=== PATIENT | female | born 1965 | race Caucasian/White ===

== ENCOUNTER 2016-08-05 21:16 | Emergency (ER) | payer BC, OTHER ==
[2016-08-05 21:34] VITALS: BP 160/77
[2016-08-05] MEDS ORDERED: Clindamycin CAP* 150 MG PO ONE (22:06)
[2016-08-05] MEDS ORDERED: HYDROcodone/ACETAMIN 5-325 MG* 1 TAB PO ONE (22:06)
[2016-08-05] MEDS ORDERED: Ondansetron ODT TAB* 4 MG PO ONE (22:06)
--- NOTE | 2016-08-05 22:14 | UC ---
Dental HPI - HPI Summary HPI Summary: R upper tooth pain & swelling starting yesterday morning. Has lots of dental problems, no current dentist. - History of Current Complaint Chief Complaint: UCDentalProblem Stated Complaint: TOOTH ACHE Time Seen by Provider: 08/05/16 22:01 Hx Obtained From: Patient ?: No Onset/Duration: Gradual Onset, Lasting Days Severity: Moderate Aggravating: Chewing Alleviating: Nothing Related History: Previous Dental Care on Same Tooth, Swelling - Allergies/Home Medications Allergies/Adverse Reactions: Allergies Allergy/AdvReac Type Severity Reaction Status Date / Time Penicillins Allergy Anaphylatic Verified 08/05/16 21:28 Shock Home Medications: Home Medications Acetaminophen [Tylenol] 650 mg 08/05/16 [History] Ibuprofen [Advil] 800 mg 08/05/16 [History] Thyroid Supplement 08/05/16 [History] PMH/Surg Hx/FS Hx/Imm Hx Previously Healthy: Yes - Surgical History Surgical History: None - Family History Known Family History: Positive: Hypertension - Social History Alcohol Use: Occasionally Alcohol Amount: 1-2 glasses Substance Use Type: None Smoking Status (MU): Heavy Every Day Tobacco Smoker Review of Systems Constitutional: Negative Skin: Negative Eyes: Negative ENT: Dental Pain Respiratory: Negative Cardiovascular: Negative Gastrointestinal: Negative Genitourinary: Negative Motor: Negative Neurovascular: Negative Musculoskeletal: Negative Neurological: Negative Psychological: Negative All Other Systems Reviewed And Are Negative: Yes Physical Exam Triage Information Reviewed: Yes Appearance: Pain Distress - mod, Obese Vital Signs: Initial Vital Signs Temp 99.4 F 08/05/16 21:29 Pulse 84 08/05/16 21:29 Resp 18 08/05/16 21:29 BP 160/77 08/05/16 21:29 Pulse Ox 100 08/05/16 21:29 Vital Signs Reviewed: Yes Eye Exam: Normal Eyes: Positive: Conjunctiva Clear ENT Exam: Normal ENT: Positive: Normal ENT inspection, Hearing grossly normal, Pharynx normal, TMs normal Dental: Positive: Gross Decay/Caries @, Abscess @ - #6 Neck exam: Normal Neck: Positive: Supple, Nontender, No Lymphadenopathy Respiratory Exam: Normal Respiratory: Positive: Chest non-tender, Lungs clear, Normal breath sounds, No respiratory distress, No accessory muscle use Cardiovascular Exam: Normal Cardiovascular: Positive: RRR, No Murmur Musculoskeletal Exam: Normal Neurological Exam: Normal Neurological: Positive: Alert Psychological Exam: Normal Skin Exam: Normal Dental Complaint Course/Dx - Differential Dx/Diagnosis Provider Diagnoses: R upper tooth abscess. elevated blood pressure due to pain Discharge - Discharge Plan Condition: Stable Disposition: HOME Prescriptions: Clindamycin Cap(NF) [Cleocin 300 mg Cap(NF)] 300 mg PO TID #20 cap Patient Education Materials: Dental Abscess (ED) Referrals: Estee Samuel MD [Primary Care Provider] - Additional Instructions: Please follow up with a dentist as soon as possible.
== END 2016-08-05 22:17 | disposition home or self-care (01) ==
LOC: UCEAST 21:16
DX: K04.7 Periapical abscess without sinus (principal); F17.210 Nicotine dependence, cigarettes, uncomplicated; R03.0 Elevated blood-pressure reading, without diagnosis of hypertension; Z88.0 Allergy status to penicillin
CPT/HCPCS: 99203; A9270-GY; G0463

== ENCOUNTER 2017-02-15 10:44 | Emergency (ER) | payer SELFPAY ==
[2017-02-15 11:14] VITALS: BP 144/70
[2017-02-15] MEDS ORDERED: Tetan/Diph/Pertus SYR(Tdap)* 0.5 ML SYR(BOOSTRIX) use SYR IM ONE (11:33)
[2017-02-15] MEDS ORDERED: Silver Sulfadiazine 1%* 20 GM TOPICAL ONE ×2 (11:34→11:54)
--- NOTE | 2017-02-15 11:47 | UC ---
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 TWO BLISTERS ON RIGHT ARM. ONE BLISTER ON SUPERIOR ANTERIOR CHEST. - History of Current Complaint Chief Complaint: UCBurn Stated Complaint: REESE ON ARM Time Seen by Provider: 02/15/17 11:24 Hx Obtained From: Patient Occurred: Days Ago Length of Exposure: Seconds Onset Severity: Moderate Current Severity: Mild Location: Trunk, RUE Character: Direct Thermal Contact Aggravating Factor(s): Nothing Alleviating Factor(s): Nothing Occupational Injury: Yes - Allergy/Home Medications Allergies/Adverse Reactions: Allergies Allergy/AdvReac Type Severity Reaction Status Date / Time Penicillins Allergy Anaphylatic Verified 02/15/17 11:06 Shock PMH/Surg Hx/FS Hx/Imm Hx Previously Healthy: Yes - Surgical History Surgical History: None Surgery Procedure, Year, and Place: hysterectomy - Family History Known Family History: Positive: Hypertension - Social History Occupation: Employed Full-time Lives: With Family Alcohol Use: Occasionally Alcohol Amount: 1-2 glasses Substance Use Type: None Smoking Status (MU): Heavy Every Day Tobacco Smoker Amount Used/How Often: 1/2 PPD Cessation Counseling: Patient Advised to Stop Review of Systems Constitutional: Negative Skin: Rash - RIGHT FOREARM 3CM X1CM & 2CM X 1CM BLISTERS. SUPERIOR ANTERIOR CHEST. Eyes: Negative ENT: Negative Respiratory: Negative Cardiovascular: Negative Gastrointestinal: Negative Genitourinary: Negative Motor: Negative Neurovascular: Negative Musculoskeletal: Negative Neurological: Negative Psychological: Negative Is Patient Immunocompromised?: No All Other Systems Reviewed And Are Negative: Yes Physical Exam Triage Information Reviewed: Yes Appearance: Well-Appearing, No Pain Distress, Well-Nourished, Obese Vital Signs: Initial Vital Signs Temp 98 F 02/15/17 11:07 Pulse 76 02/15/17 11:07 Resp 16 02/15/17 11:07 BP 144/70 02/15/17 11:07 Pulse Ox 100 02/15/17 11:07 Vital Signs Reviewed: Yes Eye Exam: Normal ENT Exam: Normal ENT: Positive: Normal ENT inspection Dental Exam: Normal Neck exam: Normal Neck: Positive: Supple, Nontender, No Lymphadenopathy Respiratory Exam: Normal Respiratory: Positive: Chest non-tender, Lungs clear, Normal breath sounds, No respiratory distress, No accessory muscle use Cardiovascular Exam: Normal Cardiovascular: Positive: RRR, No Murmur, Pulses Normal Abdominal Exam: Normal Musculoskeletal Exam: Normal Musculoskeletal: Positive: Strength Intact, ROM Intact Neurological Exam: Normal Psychological Exam: Normal Skin: Positive: Other - RIGHT FOREARM 3CM X1CM & 2CM X 1CM BLISTERS. SUPERIOR ANTERIOR CHEST. Burn Calculation - Trunk / Ant. 18% Trunk / Ant. % 2nd De - Right Arm 9% Right Arm 2nd De - Total 2nd Deg Total: 2 Total % BSA: 2 - [employer] Formula for Fluid Resuscitation Weight: 124.738 kg Total % BSA 2nd & 3rd Degree: 2 24 -Hour Fluid Replacement: 997.9 Course/Dx Burn - Differential Dx - Burn Differential Diagnoses: Direct Contact Thermal Burn - Diagnoses Clinic Provider Diagnoses: SECOND DEGREE REESE 2X RIGHT FOREARM; 1X SUPERIOR ANTERIOR CHEST Discharge - Discharge Plan Condition: Stable Disposition: HOME Patient Education Materials: Second Degree Burn (ED) Referrals: Estee Samuel MD [Primary Care Provider] -
== END 2017-02-15 12:23 | disposition home or self-care (01) ==
LOC: UCEAST 10:44
DX: T22.211A Burn of second degree of right forearm, initial encounter (principal); T21.21XA Burn of second degree of chest wall, initial encounter; X19.XXXA Contact with other heat and hot substances, initial encounter; Y93.9 Activity, unspecified; Y92.9 Unspecified place or not applicable; Y99.9 Unspecified external cause status; F17.210 Nicotine dependence, cigarettes, uncomplicated; Z88.0 Allergy status to penicillin
CPT/HCPCS: 90715; 99213; A9270-GY; G0463

== ENCOUNTER 2017-10-08 07:05 | Emergency (ER) | payer SELFPAY ==
[2017-10-08] MEDS ORDERED: predniSONE TAB* 20 MG PO ONE (08:01)
[2017-10-08] MEDS ORDERED: Ipratropium 0.5MG/2.5ML NEB* 0.5 MG/2.5 ML NEB.SOLN INH ONE (08:02)
[2017-10-08] MEDS ORDERED: Albuterol 2.5 MG/3 ML NEB.SOL* (0.083%) INH ONE (08:02)
--- NOTE | 2017-10-08 08:08 | UC ---
Shortness of Breath HPI - HPI Summary HPI Summary: Patient presents with 2 days of cough, congestion and drainage. Yesterday started feeling short of breath and wheezy. Symptoms have been getting worse. Denies any asthma or diagnosis of COPD but does smoke half a pack per day. Has been smoking for over 20 years. Has subjective fever and chills. - History of Current Complaint Chief Complaint: UCRespiratory Stated Complaint: SHORT OF BREATH Time Seen by Provider: 10/08/17 07:43 Hx Obtained From: Patient Onset/Duration: Gradual Onset, Lasting Days, Still Present Timing: Constant Current Severity: Moderate Dyspnea At: Rest Aggrevating Factors: Movement Alleviating Factors: Nothing Associated Signs & Symptoms: Positive: Cough (Nonproductive), Wheezing, Fever, Chills - Allergy/Home Medications Allergies/Adverse Reactions: Allergies Allergy/AdvReac Type Severity Reaction Status Date / Time Penicillins Allergy Anaphylatic Verified 10/08/17 07:22 Shock Home Medications: Home Medications Adrenal Supplement 1 tab 10/08/17 [History] D-Methorphan/PE/Acetaminophen [Cold Multi-Symptom Caplet] 1 tab PO 10/08/17 [ History] Fluticasone NASAL SPRAY 50MCG* [Flonase NASAL SPRAY 50MCG*] 2 spray BOTH NARES DAILY 10/08/17 [History Confirmed 10/08/17] Pseudoephedrine HCl [Sudafed 12 Hour] 120 mg PO 10/08/17 [History] guaiFENesin [Mucinex] 600 mg PO 10/08/17 [History] PMH/Surg Hx/FS Hx/Imm Hx Previously Healthy: Yes - Surgical History Surgical History: Yes Surgery Procedure, Year, and Place: hysterectomy - Family History Known Family History: Positive: Hypertension - Social History Alcohol Use: Rare Alcohol Amount: 1-2 glasses Substance Use Type: None Smoking Status (MU): Light Every Day Tobacco Smoker Type: Cigarettes Amount Used/How Often: 1/2 PPD Review of Systems Constitutional: Fever, Chills, Fatigue ENT: Nasal Discharge Respiratory: Shortness Of Breath, Cough, Other - WHEEZE Cardiovascular: Negative Gastrointestinal: Negative All Other Systems Reviewed And Are Negative: Yes Physical Exam Triage Information Reviewed: Yes Appearance: No Pain Distress, Well-Nourished, Ill-Appearing - MILD Vital Signs: Initial Vital Signs Temp 97.5 F 10/08/17 07:16 Pulse 83 10/08/17 07:16 Resp 18 10/08/17 07:16 BP 185/94 10/08/17 07:16 Pulse Ox 95 10/08/17 07:16 Vital Signs Reviewed: Yes Eyes: Positive: Conjunctiva Clear ENT: Positive: Hearing grossly normal, Pharynx normal, TMs normal Neck: Positive: Supple, Nontender, No Lymphadenopathy Respiratory: Positive: No respiratory distress, No accessory muscle use, Decreased breath sounds, Wheezing - DIFFUSELY Cardiovascular Exam: Normal Abdomen Description: Positive: Soft Musculoskeletal: Positive: No Edema Neurological: Positive: Alert Psychological: Positive: Age Appropriate Behavior Skin: Negative: rashes Diagnostics - Radiology CXR Xray Interpretation: Positive (See Comments) - Mild LEFT basilar subsegmental atelectasis. Elevated lung volumes suggest probable chronic obstructive pulmonary disease. Radiology Interpretation Completed By: Radiologist Re-Evaluation - Re-Evaluation First Eval Re-Evaluation Time: 09:30 - FEELS BETTER AFTER DUONEB AND 60MG PREDNISONE. LUNGS SOUND BETTER. MOVING MORE AIR AND LESS WHEEZE Change: Improved Shortness of Breath Dx - Differential Dx/Diagnosis Provider Diagnoses: COPD EXACERBATION Discharge - Sign-Out/Discharge Documenting (check all that apply): Discharge/Admit/Transfer - Discharge Plan Condition: Stable Disposition: HOME Prescriptions: Albuterol 2.5MG/3ML (0.083%)* [Ventolin 2.5 MG/3 ML NEB.BHANU*] 2.5 mg INH Q4H PRN #1 box PRN Reason: Wheezing Albuterol HFA INHALER* [Ventolin HFA Inhaler*] 2 puff INH Q4H PRN #1 mdi PRN Reason: Shortness Of Breath Azithromycin 500 mg PO DAILY #5 tab Nebulizer [Mini Plus Nebulizer] 1 each MC Q4H PRN #1 each PRN Reason: Shortness Of Breath predniSONE TAB* [Deltasone TAB*] 50 mg PO DAILY #5 tab Patient Education Materials: COPD (Chronic Obstructive Pulmonary Disease) (ED) Forms: *Work Release Referrals: Estee Samuel MD [Primary Care Provider] - Additional Instructions: Chest x-ray consistent with COPD. Take your prednisone daily for the next 4 days and use the albuterol every 4 hours as needed. If you're not improving with that treatment over the next few days start the antibiotic. If you start the antibiotic take it for the full 5 days. Follow-up with Dr. Samuel if you' re not improving as expected and to discuss smoking cessation. - Billing Disposition and Condition Condition: STABLE Disposition: Home
[2017-10-08 08:55] VITALS: BP 138/80
--- NOTE | 2017-10-08 09:38 | RAD ---
INDICATION: Cough and shortness of breath since Saturday. History of tobacco use. COMPARISON: May 31, 2011 TECHNIQUE: Dual energy PA and routine lateral views of the chest were obtained. REPORT: Elevated lung volumes. Large body habitus results in artifactual grossly symmetric opacification at the lower lung zones. Minimal linear atelectasis at the LEFT costophrenic angle. No pleural effusion or pneumothorax evident. Negative for cardiomegaly. Unremarkable central pulmonary vasculature. Moderately tortuous descending thoracic aorta seen in association with RIGHT convex scoliosis with interval increase. IMPRESSION: Mild LEFT basilar subsegmental atelectasis. Elevated lung volumes suggest probable chronic obstructive pulmonary disease.
== END 2017-10-08 09:55 | disposition home or self-care (01) ==
LOC: UCEAST 07:05
DX: J44.1 Chronic obstructive pulmonary disease with (acute) exacerbation (principal); Z88.0 Allergy status to penicillin; F17.210 Nicotine dependence, cigarettes, uncomplicated; Z82.49 Family history of ischemic heart disease and other diseases of the circulatory system
CPT/HCPCS: 71046; 99213; G0463; J7512

== ENCOUNTER 2018-05-22 11:54 | Emergency (ER) | payer OTHER ==
[2018-05-22 12:09] VITALS: BP 151/71
[2018-05-22] MEDS ORDERED: Ibuprofen TAB* 600 MG PO ONE (12:29)
--- NOTE | 2018-05-22 12:33 | UC ---
Hand/Wrist HPI - HPI Summary HPI Summary: 52-year-old female comes in to clinic today with chief complaint of right hand pain. 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 The pain is on the dorsum of the hand over the metacarpals. She is able to move her fingers and her wrist but movement of the fingers especially gives for pain. Ice is decreasing the pain. - History Of Current Complaint Chief Complaint: UCUpperExtremity Stated Complaint: HAND INJURY Time Seen by Provider: 05/22/18 12:24 Pain Intensity: 7 - Allergies/Home Medications Allergies/Adverse Reactions: Allergies Allergy/AdvReac Type Severity Reaction Status Date / Time Penicillins Allergy Anaphylatic Verified 05/22/18 12:09 Shock PMH/Surg Hx/FS Hx/Imm Hx Previously Healthy: Yes Respiratory History: Asthma - Surgical History Surgical History: Yes Surgery Procedure, Year, and Place: hysterectomy - Family History Known Family History: Positive: Hypertension - Social History Alcohol Use: Rare Alcohol Amount: 1-2 glasses Substance Use Type: None Smoking Status (MU): Light Every Day Tobacco Smoker Type: Cigarettes Amount Used/How Often: 1/2 PPD Review of Systems All Other Systems Reviewed And Are Negative: Yes Constitutional: Positive: Negative Skin: Positive: Bruising Eyes: Positive: Negative ENT: Positive: Negative Respiratory: Positive: Negative Cardiovascular: Positive: Negative Gastrointestinal: Positive: Negative Motor: Positive: Negative Neurovascular: Positive: Negative Musculoskeletal: Positive: Other: - SEE HPI Neurological: Positive: Negative Psychological: Positive: Negative Is Patient Immunocompromised?: No Physical Exam Triage Information Reviewed: Yes Appearance: Well-Appearing, Well-Nourished, Pain Distress - WITH RT HAND PALPATION/MOVEMENT Vital Signs: Initial Vital Signs Temp 98 F 05/22/18 12:07 Pulse 80 05/22/18 12:07 Resp 18 05/22/18 12:07 BP 151/71 05/22/18 12:07 Pulse Ox 100 05/22/18 12:07 Vital Signs Reviewed: Yes Eye Exam: Normal Eyes: Positive: Conjunctiva Clear Neck exam: Normal Neck: Positive: Supple Respiratory: Positive: No respiratory distress Musculoskeletal: Positive: Other: - On the patient's right hand on the dorsum there is some ecchymosis over the metacarpals. It is tender to palpation primarily over the second through fifth metacarpals. There is some swelling no obvious deformity no skin break. Wrist is nontender to palpation and has full range of motion although it does increase the pain of the hand. Fingers have full range of motion but also increase the pain in the hand. Normal capillary refill no sensation deficit normal radial pulse. Neurological Exam: Normal Neurological: Positive: Alert, Muscle Tone Normal Psychological Exam: Normal Psychological: Positive: Age Appropriate Behavior Skin: Positive: Other - ECCYMOSIS DORSUM OF RT HAND. NO SKIN BREAK. Hand/Wrist Course/Dx - Course Course Of Treatment: Order Information: HAND - RIGHT MINIMUM 3 VIEWS. Accession Number: [id number]. CPT: 40716. Indication: Hand injury. 4 views of the right hand demonstrates no fracture. No other bone or joint abnormality is. identified. IMPRESSION: No fracture of the right hand is noted. . <Electronically signed by Lisa Galicia MD in [facility]> 05/22/18 1241. Discussed the x-ray report with the patient. No fracture seen. Overall the plan is a cock-up splint which nursing in the clinic and the patient is neurovascularly intact after placement of the splint. Eyes anti-inflammatories and rest. Follow-up with orthopedics if not completely improved. - Differential Dx/Diagnosis Provider Diagnosis: Crushing injury of right hand Discharge - Sign-Out/Discharge Documenting (check all that apply): Patient Departure All imaging exams completed and their final reports reviewed: Yes - Discharge Plan Condition: Stable Disposition: HOME Patient Education Materials: Crush Injury (ED), Hand Sprain (ED) Forms: *Work Release Referrals: Estee Samuel MD [Primary Care Provider] - Wendy Dsouza MD [Medical Doctor] - Additional Instructions: FOLLOW UP WITH DR DSOUZA, ORTHOPEDICS, IF NOT COMPLETELY IMPROVED. GET RECHECKED FOR ANY WORSENING OF YOUR CONDITION OR QUESTIONS OR CONCERNS. - Billing Disposition and Condition Condition: STABLE Disposition: Home
== END 2018-05-22 13:42 | disposition home or self-care (01) ==
LOC: UCEAST 11:54
DX: S67.21XA Crushing injury of right hand, initial encounter (principal); W23.0XXA Caught, crushed, jammed, or pinched between moving objects, initial encounter; Y92.89 Other specified places as the place of occurrence of the external cause; Y99.0 Civilian activity done for income or pay; Z88.0 Allergy status to penicillin; F17.210 Nicotine dependence, cigarettes, uncomplicated
CPT/HCPCS: 99212; A9270-GY; G0463